=== PATIENT | female | born 1960 | race Caucasian/White ===

== ENCOUNTER 2021-05-29 03:33 | Outpatient (CLI) | payer BC, SELFPAY ==
[2021-05-29 12:37] LABS: HCT 35.3 % (36.0-46.0); HGB 10.4 g/dL (11.2-15.7); MCH 20.5 pg (27.0-33.0); MCHC 29.5 % (32.0-36.0); MCV 69.6 fL (80-95); Platelet Count 296 10^3/uL (130-400); RBC 5.07 10^6/uL (3.93-5.22); RDW 21.1 % (11.7-14.6); RDW-SD 51.2 fL; WBC 5.07 10^3/uL (4.4-10.8)
[2021-05-29 12:56] LABS: Hemoglobin A1C 5.6 % (<5.7)
[2021-05-29 13:05] LABS: ALT 19 U/L (14-59); AST 19 U/L (15-37); Albumin 3.6 g/dL (3.4-5.0); Alkaline Phosphatase 62 U/L (46-116); Anion Gap 10.6 mmol/L (3-11); BUN 18 mg/dL (7-18); Bilirubin, Total 0.2 mg/dL (0.2-1.0); CO2 24.4 mmol/L (21.0-32.0); CREATININE 0.8 mg/dL (0.55-1.02); Calcium 8.8 mg/dL (8.5-10.1); Calculated LDL 115 mg/dL (<100); Chloride 105 mmol/L (98-107); Cholesterol 195 mg/dL (<200); Glucose 97 mg/dL (74-106); HDL Cholesterol 68 mg/dL (40-60); Potassium 4.1 mmol/L (3.5-5.1); Sodium 140 mmol/L (136-145); TSH (W/Ref FT4) 1.12 uIU/mL (0.36-3.74); Total Protein 7.7 g/dL (6.4-8.2); Triglyceride 62 mg/dL (<150)
== END 2021-05-29 03:34 | disposition home or self-care (01) ==
LOC: LOS 03:33
PROVIDERS: PCP Nurse Practitioner; Visit Provider Nurse Practitioner
DX: I10 Essential (primary) hypertension (principal); E66.9 Obesity, unspecified; Z13.220 Encounter for screening for lipoid disorders
CPT/HCPCS: 36415; 80053; 80061; 85027; 83036; 84443

== ENCOUNTER 2021-12-26 01:50 | Outpatient (CLI) | payer BC, SELFPAY ==
--- NOTE | 2021-12-26 07:45 | DI.MAMMO_ITS ---
Exam(s) MAMMO SCREENING EXAM: MAMMO SCREENING CLINICAL HISTORY: screening,Z12.39,BASELINE. TECHNIQUE: Bilateral full field digital CC and MLO mammographic images were obtained with 3D tomosyn thesis and utilizing computer aided detection (CAD). COMPARISON: None. This is a baseline mammogram on this 61-year-old patient FINDINGS: Fibroglandular tissue is moderately dense. There are no significant radiograph findings in the right breast. The left breast there is a partially well-defined nodule located approximately 9 cm in from the nippl e on the MLO 3D view measuring approximately 8 by 6 millimeters and containing a single benign-appear ing microcalcifications therein. On the 3D cc view this is located lateral of center and, approximat e 12 cm in from the nipple. No malignant-appearing microcalcification groups in either breast There is no significant architectural distortion nor skin thickening-retraction. IMPRESSION: 1. No radiographic evidence of malignancy in the right breast . 2. There is 8 x 6 millimeter nodule in the left breast as described above. Spot compression view an d ultrasound recommended BI-RADS Category 0 - Assessment Incomplete: Need additional imaging evaluation Breast Density - Category C - Heterogeneously dense Breast density Category C or D implies that the patient has dense breast tissue. Dense breast tissue can make it harder to find cancer on a mammogram. Dense breast tissue is also associated with an incr eased risk of breast cancer. This information about the result of the mammogram report was provided to the patient to raise their awareness. Use this report when you speak with the patient about their risks for breast cancer, which includes their family history. At that time, you may recommend additional screening tests (Ultrasoun d or MRI) as these tests may add significant information. A negative radiographic report should not delay biopsy if a dominant or clinically suspicious mass is present. Up to ten percent of cancers are not identified on mammography. A negative report may reinforce clinical impression. Adenosis and dense breasts may obscure an underlying neoplasm. False positive reports average 6 to 10%. Patient will receive a letter notifying them of these results.
== END 2021-12-26 02:10 ==
PROVIDERS: PCP Nurse Practitioner; Visit Provider Nurse Practitioner
DX: Z12.31 Encounter for screening mammogram for malignant neoplasm of breast (principal); R92.8 Other abnormal and inconclusive findings on diagnostic imaging of breast
CPT/HCPCS: 77063; 77067

== ENCOUNTER 2022-01-01 00:30 | Outpatient (CLI) | payer BC, SELFPAY ==
--- NOTE | 2022-01-01 | DI.MAMMO_ITS ---
Exam(s) MG MAMMO SCREEN CALL BACK UNI US BREAST LT LIMITED EXAM: MG MAMMO SCREEN CALL BACK UNI CLINICAL HISTORY: F/U MAMMO, LT BREAST NODULE TECHNIQUE: Spot compression views and tomographic imaging were performed. Targeted ultrasound of the upper outer quadrant. COMPARISON: 26 December 2021 FINDINGS: Spot compression views: There is a persistent circumscribed nodule in the upper outer quadrant of the left breast measuring 8 millimeters in greatest dimension. There is an associated or adjacent calci fication. No suspicious features. Left breast ultrasound: 6 x 6 x 7 millimeter hypoechoic avascular circumscribed nodule with associa soumya peripheral calcifications. IMPRESSION: BI-RADS Cat 3 - 6 month - Probably Benign Finding: Recommend follow-up left mammogram and ultrasound in 6 months Breast Density - Category B, scattered fibroglandular densities.
== END 2022-01-01 00:50 ==
PROVIDERS: PCP Nurse Practitioner; Visit Provider Nurse Practitioner
DX: Z12.31 Encounter for screening mammogram for malignant neoplasm of breast (principal); R92.8 Other abnormal and inconclusive findings on diagnostic imaging of breast; N63.21 Unspecified lump in the left breast, upper outer quadrant
CPT/HCPCS: 76642; 77063; 77067

== ENCOUNTER 2022-02-28 01:14 | Outpatient (CLI) | payer BC, SELFPAY ==
[2022-02-28 13:02] LABS: Abs Immature Grans 0.02 10^3/uL (0.0-0.06); Absolute Basophil Count 0.03 10^3/uL (0.0-0.2); Absolute Lymphocyte Count 1.17 10^3/uL (1.2-3.4); Absolute Monocyte Count 0.55 10^3/uL (0.1-0.8); Absolute Neutrophil Count 3.31 10^3/uL (1.2-6.7); Basophils % 0.6; Eosinophils % 1.9; HCT 36.1 % (36.0-46.0); HGB 10.6 g/dL (11.2-15.7); Immature Grans % 0.4; Lymphocytes % 22.6; MCH 21.2 pg (27.0-33.0); MCHC 29.4 % (32.0-36.0); MCV 72 fL (80-95); MPV 11.4 fL (8.0-11.0); Monocytes % 10.6; Neutrophils % 63.9; Platelet Count 302 10^3/uL (130-400); RBC 5.01 10^6/uL (3.93-5.22); RDW 20.8 % (11.7-14.6); RDW-SD 53.4 fL; WBC 5.18 10^3/uL (4.4-10.8)
[2022-02-28 13:40] LABS: Total Iron Binding Capacity 476 ug/dL (250-450)
[2022-02-28 13:43] LABS: Hemoglobin A1C 5.8 % (<5.7)
[2022-02-28 13:55] LABS: Ferritin 6 ng/mL (8-252); TSH (W/Ref FT4) 0.97 uIU/mL (0.36-3.74); Vitamin B12 300 pg/mL (193-986)
[2022-03-01 05:17] LABS: Vitamin D 25 Total 7.2 ng/mL (30-100)
== END 2022-02-28 01:15 | disposition home or self-care (01) ==
LOC: LOS 01:15
PROVIDERS: Family Medicine; PCP Nurse Practitioner; Visit Provider Nurse Practitioner
DX: D64.9 Anemia, unspecified (principal); E66.01 Morbid (severe) obesity due to excess calories; Z68.41 Body mass index [BMI] 40.0-44.9, adult; F41.8 Other specified anxiety disorders
CPT/HCPCS: 36415; 82306; 82607; 82728; 83036; 83550; 84443; 85025

== ENCOUNTER 2022-03-01 01:49 | Outpatient (CLI) | payer BC, SELFPAY ==
[2022-03-01 13:16] LABS: ALT 21 U/L (14-59); AST 19 U/L (15-37); Albumin 3.6 g/dL (3.4-5.0); Alkaline Phosphatase 74 U/L (46-116); Anion Gap 10.3 mmol/L (3-11); BUN 16 mg/dL (7-18); Bilirubin, Total 0.3 mg/dL (0.2-1.0); CO2 25.7 mmol/L (21.0-32.0); CREATININE 0.7 mg/dL (0.55-1.02); Calcium 8.5 mg/dL (8.5-10.1); Calculated LDL 113 mg/dL (<100); Chloride 105 mmol/L (98-107); Cholesterol 195 mg/dL (<200); Glucose 98 mg/dL (74-106); HDL Cholesterol 65 mg/dL (40-60); Potassium 3.8 mmol/L (3.5-5.1); Sodium 141 mmol/L (136-145); Total Protein 7.7 g/dL (6.4-8.2); Triglyceride 85 mg/dL (<150)
[2022-03-05 09:16] LABS: Insulin 12.5 uIU/mL (<29.0)
== END 2022-03-01 01:50 | disposition home or self-care (01) ==
LOC: LOS 01:49
PROVIDERS: PCP Nurse Practitioner; Visit Provider Family Medicine
DX: E66.01 Morbid (severe) obesity due to excess calories (principal); Z68.41 Body mass index [BMI] 40.0-44.9, adult
CPT/HCPCS: 36415; 80053; 80061; 83525

== ENCOUNTER 2022-11-15 01:51 | Outpatient (CLI) | payer BC, SELFPAY ==
--- NOTE | 2022-11-15 06:45 | DI.US_ITS ---
Exam(s) US BREAST LT COMPLETE MG MAMMO DIAGNOSTIC BI EXAM: MG MAMMO DIAGNOSTIC BI AND COMPLETE LEFT BREAST ULTRASOUND CLINICAL HISTORY: 6 MO F/U, R92.8,NODULE UOQ. TECHNIQUE: BOTH CC AND MLO mammographic images BOTH BREASTS were obtained with 3D tomosynthesis tech [employer] and utilizing computer aided detection (CAD). COMPLETE LEFT BREAST ULTRASOUND was also performed including all 4 quadrants as well as the retroareo lar region and left axilla. COMPARISON: Prior mammograms were reviewed, the most recent being December 2021. Prior ultrasound of December 2021 was also reviewed. FINDINGS: DIAGNOSTIC BILATERAL MAMMOGRAM: There has been no significant change in the appearance and distribution of the fibroglandular tissue. Previously described small benign-appearing nodule in the left breast is unchanged. There are no new spiculated masses nor malignant-appearing microcalcification groups in either breast. No new architectural distortion or skin thickening-traction. COMPLETE LEFT BREAST ULTRASOUND: No evidence of solid or significant cystic lesions in all 4 quadrants nor in the retroareolar region. The previously described small benign-appearing cyst at the 4 o'clock position is no longer seen. No new findings in the retroareolar region. Scanning of the left axilla is negative for significant adenopathy. IMPRESSION: No radiographic evidence of malignancy. Stable benign findings. Appropriate follow-up is to keep this patient on a yearly mammogram schedule, with earlier imaging if a self detected breast change is noted.. The patient was informed of the findings and follow-up recommendations by myself prior to leaving the department today. BI-RADS Category 2 - Benign Findings Breast Density - Category C - Heterogeneously dense Breast density Category C or D implies that the patient has dense breast tissue. Dense breast tissue can make it harder to find cancer on a mammogram. Dense breast tissue is also associated with an incr eased risk of breast cancer. This information about the result of the mammogram report was provided to the patient to raise their awareness. Use this report when you speak with the patient about their risks for breast cancer, which includes their family history. At that time, you may recommend additional screening tests (Ultrasoun d or MRI) as these tests may add significant information. A negative radiographic report should not delay biopsy if a dominant or clinically suspicious mass is present. Up to ten percent of cancers are not identified on mammography. A negative report may reinforce clinical impression. Adenosis and dense breasts may obscure an underlying neoplasm. False positive reports average 6 to 10%. Patient will receive a letter notifying them of these results.
== END 2022-11-15 02:11 ==
PROVIDERS: PCP Nurse Practitioner; Visit Provider Nurse Practitioner
DX: R92.8 Other abnormal and inconclusive findings on diagnostic imaging of breast (principal)
CPT/HCPCS: 76642; 77062; 77066; G0279